=== PATIENT | female | born 1985 | race Caucasian/White ===

== ENCOUNTER 2021-09-01 20:38 | Emergency (ER) | payer BC ==
[~2021-09-01] VITALS: Ht 154.9 cm; Wt 70.3 kg
[2021-09-01 20:38] VITALS: BP 132/68
[~2021-09-01 20:38] MED LIST: CARB200T; MULT-13 OR
[2021-09-01 22:42] LABS: Basophils # (auto) 0 10 ^3/uL (0-0.2); Basophils % (auto) 0.6 % (0.0-2.0); Eosinophils # (auto) 0.1 10 ^3/uL (0-0.8); Eosinophils % (auto) 0.8 % (0.0-7.0); Hematocrit 43.5 % (36.0-46.0); Lymphocytes # (auto) 3.2 10 ^3/uL (0.4-5.4); Lymphocytes % (auto) 41.8 % (10.0-50.0); Mean Corpuscular Hemoglobin 30.6 pg (28.0-32.0); Mean Corpuscular Hgb Conc. 34.4 g/dL (32.0-36.0); Mean Corpuscular Volume 89.1 fL (80.0-100.0); Monocytes # (auto) 0.5 10 ^3/uL (0-1.3); Monocytes % (auto) 6.8 % (0.0-12.0); Neutrophils # (auto) 3.9 10 ^3/uL (1.6-8.6); Nucleated Red Blood Cells % 0.1 %; Red Blood Cells 4.88 10^6/uL (4.0-5.20); Red Cell Distribution Width 12.5 % (11.8-14.3); White Blood Cell 7.7 10^3/uL (4.4-10.8)
[2021-09-01 23:00] LABS: Potassium 4.3 mmol/L (3.5-5.1)
[2021-09-01 23:07] LABS: Albumin 3.8 g/dL (3.4-5.0); BUN/Creatinine Ratio 9.7; Bilirubin, Total 0.4 mg/dL (0.2-1.0); Calcium 8.7 mg/dL (8.5-10.1); Total Protein 7.5 g/dL (6.4-8.2)
== END 2021-09-02 01:07 | disposition left against medical advice (07) ==
LOC: ER 20:38
DX: R10.9 Unspecified abdominal pain (principal); R11.0 Nausea; Z53.21 Procedure and treatment not carried out due to patient leaving prior to being seen by health care provider
CPT/HCPCS: 36415; 80053; 82150; 83690; 85025

== ENCOUNTER → 2023-02-16 | Emergency (ER) | payer BC ==
[~2023-02-16] VITALS: Ht 165.1 cm; Wt 81.8 kg
[2023-02-16 15:32] VITALS: BP 0/0; PULSE 0; RESP 0; O2SAT 0
== END ==
LOC: ER 15:31
DX: I46.9 Cardiac arrest, cause unspecified (principal)
CPT/HCPCS: 31500; 92950